=== PATIENT | female | born 1990 | race Caucasian/White ===

== ENCOUNTER 2018-06-02 02:20 | Emergency (ER) | payer OTHER ==
[~2018-06-02] VITALS: Ht 165.1 cm; Wt 95.3 kg
[~2018-06-02 02:20] MED LIST: AMOXICILLIN500 M2 PO; ANAPROX DS550 MG PO; CLINDAMYCIN HC300 MG PO; DEPO PROVER150 MG/M1 IM; FLEXERIL10 MG PO; HYDROCODONE BIT1 T11 PO; MACROBID100 M1 PO; MOTRIN800 MG PO; NAPROSYN500 MG PO; PHENERGAN25 M1 PO; ULTRAM50 MG PO; ZITHROMAX250 MG PO
== END 2018-06-02 03:39 | disposition home or self-care (01) ==
LOC: ED 02:20
DX: M79.672 Pain in left foot (principal); M79.89 Other specified soft tissue disorders; Z88.0 Allergy status to penicillin; X50.1XXA Overexertion from prolonged static or awkward postures, initial encounter; Y93.89 Activity, other specified; Y92.89 Other specified places as the place of occurrence of the external cause; Y99.8 Other external cause status

== ENCOUNTER → 2018-06-06 | Outpatient (CLI) | payer OTHER | END | disposition home or self-care (01) | LOC: MRI 11:00 | DX: M25.572 Pain in left ankle and joints of left foot (principal); M25.472 Effusion, left ankle ==

== ENCOUNTER 2018-08-31 18:46 | Emergency (ER) | payer OTHER ==
[~2018-08-31] VITALS: Ht 165.1 cm; Wt 99.8 kg
[2018-08-31 19:05] LABS: BASO % 0.4 % (0.0-1.0); EOS # 0.2 10*3/uL (0.0-0.4); EOS % 3.5 % (1.0-4.0); HEMATOCRIT 42.4 % (37.0-47.0); HEMOGLOBIN 14.4 g/dl (12.0-16.0); LYMPH % 36.5 % (27.0-41.0); MEAN CELL VOLUME 92.6 fl (81.0-99.0); MEAN CORPUSCULAR HGB 31.4 pg (27.0-31.0); MEAN PLATELET VOLUME 11.4 fl (9.6-12.3); MONO # 0.5 10*3/uL (0.1-1.0); MONO % 8.9 % (3.0-9.0); NEUT # 2.7 10*3/uL (2.3-7.9); NEUT % 50.5 % (47.0-73.0); PLATELET COUNT AUTOMATED 190 10*3/uL (130-400); RED BLOOD COUNT 4.58 10*6/uL (4.10-5.10); RED CELL DISTRI WIDTH 12.8 % (0-14.5); WHITE BLOOD COUNT 5.4 10*3/uL (4.8-10.8)
[2018-08-31 19:21] LABS: ALBUMIN 3.3 gm/dl (3.1-4.5); ALKALINE PHOSPHATASE 56 U/L (45-117); BUN 10 mg/dl (7-24); CHLORIDE 107 mmol/L (98-107); CREATININE 0.65 mg/dL (0.55-1.02); POTASSIUM 4.3 mmol/L (3.5-5.1); SGOT/AST 28 IU/L (3-35); SGPT/ALT 46 U/L (12-78); SODIUM 139 mmol/L (136-145); TOTAL PROTEIN 7.7 gm/dL (6.4-8.2)
[2018-08-31] MEDS ORDERED: AVPAK AZITHROM250 MG PO (19:34)
[2018-08-31] MEDS ORDERED: ROBITUSSIN DM 101 OZ PO (19:34)
== END 2018-08-31 20:36 | disposition home or self-care (01) ==
LOC: ED 18:46
PROVIDERS: Nurse Practitioner Family
DX: J03.90 Acute tonsillitis, unspecified (principal); J06.9 Acute upper respiratory infection, unspecified; R51 Headache; F17.200 Nicotine dependence, unspecified, uncomplicated; Z88.0 Allergy status to penicillin

== ENCOUNTER 2018-11-23 02:18 | Emergency (ER) | payer OTHER ==
[~2018-11-23] VITALS: Ht 165.1 cm; Wt 95.3 kg
[~2018-11-23 02:18] MED LIST changes: +AVPAK AZITHROM250 MG PO; +ROBITUSSIN DM 101 OZ PO
[2018-11-23] MEDS ORDERED: ULTRAM50 MG PO (04:49)
== END 2018-11-23 05:17 | disposition home or self-care (01) ==
LOC: ED 02:18
DX: S82.55XA Nondisplaced fracture of medial malleolus of left tibia, initial encounter for closed fracture (principal); Z79.899 Other long term (current) drug therapy; Z88.0 Allergy status to penicillin; W01.0XXA Fall on same level from slipping, tripping and stumbling without subsequent striking against object, initial encounter; Y93.41 Activity, dancing; Y92.252 Music hall as the place of occurrence of the external cause; Y99.9 Unspecified external cause status

== ENCOUNTER 2019-05-01 20:01 | Emergency (ER) | payer OTHER ==
[~2019-05-01] VITALS: Ht 165.1 cm; Wt 99.8 kg
== END 2019-05-01 22:05 | disposition home or self-care (01) ==
LOC: ED 20:01
DX: S93.402A Sprain of unspecified ligament of left ankle, initial encounter (principal); S90.122A Contusion of left lesser toe(s) without damage to nail, initial encounter; W17.2XXA Fall into hole, initial encounter; Y93.89 Activity, other specified; Y92.89 Other specified places as the place of occurrence of the external cause; Y99.8 Other external cause status; Z88.0 Allergy status to penicillin

== ENCOUNTER 2019-06-19 15:12 | Emergency (ER) | payer OTHER ==
[~2019-06-19] VITALS: Ht 165.1 cm; Wt 99.8 kg
[2019-06-19] MEDS ORDERED: ZITHROMAX250 MG PO (15:58)
== END 2019-06-19 16:11 | disposition home or self-care (01) ==
LOC: ED 15:12
DX: J02.9 Acute pharyngitis, unspecified (principal); H92.02 Otalgia, left ear; Z88.0 Allergy status to penicillin

== ENCOUNTER → 2020-06-27 | Outpatient (CLI) | payer OTHER | END | disposition home or self-care (01) | LOC: COVID19 15:46 | PROVIDERS: ATTEND Internal Medicine | DX: Z20.828 Contact with and (suspected) exposure to other viral communicable diseases (principal) ==

== ENCOUNTER → 2021-05-10 | Outpatient (CLI) | payer OTHER ==
[2021-05-10 15:02] LABS: BASO % 0.2 % (0.0-1.0); EOS # 0.3 10*3/uL (0.0-0.4); EOS % 3.5 % (1.0-4.0); HEMATOCRIT 38.6 % (37.0-47.0); LYMPH # 1.3 10*3/uL (1.3-4.4); LYMPH % 16.4 % (27.0-41.0); MEAN CELL VOLUME 91.3 fl (81.0-99.0); MEAN CORPUSCULAR HGB 29.8 pg (27.0-31.0); MEAN CORPUSCULAR HGB CONC 32.6 g/dl (33.0-37.0); MEAN PLATELET VOLUME 10.9 fl (9.6-12.3); MONO # 0.5 10*3/uL (0.1-1.0); MONO % 6.3 % (3.0-9.0); NEUT # 5.9 10*3/uL (2.3-7.9); NEUT % 73.4 % (47.0-73.0); PLATELET COUNT AUTOMATED 239 10*3/uL (130-400); RED BLOOD COUNT 4.23 10*6/uL (4.10-5.10); WHITE BLOOD COUNT 8.1 10*3/uL (4.8-10.8)
[2021-05-10 15:19] LABS: ALBUMIN 3.1 gm/dl (3.1-4.5); ALKALINE PHOSPHATASE 69 U/L (45-117); BUN 6 mg/dl (7-24); CHLORIDE 107 mmol/L (98-107); CHOLESTEROL 148 mg/dL (<200); CREATININE 0.63 mg/dL (0.55-1.02); POTASSIUM 4.2 mmol/L (3.5-5.1); SGOT/AST 19 IU/L (3-35); SGPT/ALT 28 U/L (12-78); SODIUM 139 mmol/L (136-145); TOTAL PROTEIN 7.2 gm/dL (6.4-8.2); TRIGLYCERIDES 67 mg/dl (<150)
[2021-05-10 15:20] LABS: FREE T4 0.98 ng/dl (0.76-1.46); LDL CHOLESTEROL 100 mg/dL (9-159)
[2021-05-10 15:28] LABS: BETA-HCG, QUANT < 1.0 mIU/mL (1-3)
[2021-05-10 17:06] LABS: VITAMIN D, 25-HYDROXY 26.2 ng/mL (30-100)
== END | disposition home or self-care (01) ==
LOC: LAB 14:25
PROVIDERS: ATTEND Internal Medicine
DX: Z00.00 Encounter for general adult medical examination without abnormal findings (principal); N91.2 Amenorrhea, unspecified; Z13.1 Encounter for screening for diabetes mellitus; Z13.21 Encounter for screening for nutritional disorder; Z13.220 Encounter for screening for lipoid disorders; E55.9 Vitamin D deficiency, unspecified

== ENCOUNTER → 2021-07-21 | Outpatient (CLI) | payer BC, OTHER | END | disposition home or self-care (01) | LOC: LAB 14:53 → US 15:00 | PROVIDERS: ATTEND Nurse Practitioner Women's Health | DX: N83.292 Other ovarian cyst, left side (principal); N91.1 Secondary amenorrhea ==

== ENCOUNTER → 2021-09-29 | Outpatient (CLI) | payer BC, OTHER | END | disposition home or self-care (01) | LOC: US 09-15 11:00 | PROVIDERS: ATTEND Nurse Practitioner Women's Health | DX: N85.4 Malposition of uterus (principal); N83.202 Unspecified ovarian cyst, left side ==

== ENCOUNTER 2022-04-27 16:12 | Emergency (ER) | payer OTHER ==
[~2022-04-27] VITALS: Ht 165.1 cm; Wt 117.9 kg
[2022-04-27 18:56] LABS: BILIRUBIN 3+ (Negative); BLOOD Negative (Negative); CLARITY Cloudy (Clear); COLOR Orange (Yellow); GLUCOSE Negative (Negative); KETONE Trace (Negative); LEUKO ESTERASE 2+ (Negative); NITRITE Positive (Negative); PH 5.5 (4.5-8.0); SPECIFIC GRAVITY >= 1.030 (1.001-1.030)
[2022-04-27 19:00] LABS: BASO % 0.1 % (0.0-1.0); EOS # 0.1 10*3/uL (0.0-0.4); HEMATOCRIT 40.9 % (37.0-47.0); LYMPH # 2.2 10*3/uL (1.3-4.4); MEAN CELL VOLUME 83.5 fl (81.0-99.0); MEAN CORPUSCULAR HGB 26.9 pg (27.0-31.0); MEAN CORPUSCULAR HGB CONC 32.3 g/dl (33.0-37.0); MEAN PLATELET VOLUME 10.6 fl (9.6-12.3); MONO # 0.4 10*3/uL (0.1-1.0); MONO % 5.5 % (3.0-9.0); NEUT # 4.2 10*3/uL (2.3-7.9); NEUT % 61.3 % (47.0-73.0); PLATELET COUNT AUTOMATED 308 10*3/uL (130-400); RED CELL DISTRI WIDTH 15.2 % (0-14.5); WHITE BLOOD COUNT 6.9 10*3/uL (4.8-10.8)
[2022-04-27 19:13] LABS: BACTERIA 4+; CALCIUM OXALATE CRYSTALS 2+; EPITHELIAL CELLS TNTC; MUCOUS 2+
[2022-04-27 19:19] LABS: ALKALINE PHOSPHATASE 216 U/L (45-117); BUN 8 mg/dl (7-24); CHLORIDE 108 mmol/L (98-107); CREATININE 0.72 mg/dL (0.55-1.02); LIPASE 86 U/L (73-393); POTASSIUM 4.3 mmol/L (3.5-5.1); SGOT/AST 761 IU/L (3-35); SODIUM 140 mmol/L (136-145); TOTAL PROTEIN 8.2 gm/dL (6.4-8.2)
[2022-04-27 19:22] LABS: B-hCG (QUALITATIVE) NEGATIVE (NEGATIVE)
[2022-04-27 19:29] LABS: SGPT/ALT 1084 U/L (12-78)
[2022-04-28] MEDS ORDERED: PANTOPRAZOLE SO40 MG PO (00:03)
[2022-04-28] MEDS ORDERED: DICYCLOMINE HCL10 MG PO (00:03)
[2022-04-28] MEDS ORDERED: FUROSEMIDE20 M1 PO (00:03)
[2022-04-28] MEDS ORDERED: MEDROXYPRO150 MG/1 M IM (00:03)
[2022-04-28] MEDS ORDERED: DOCUSATE SOD100 MG PO (00:04)
[2022-04-28] MEDS ORDERED: [UNRECOGNIZED DRUG - OTHER] (00:04)
== END 2022-04-28 13:05 | disposition short-term general hospital (02) ==
LOC: ED 16:12
PROVIDERS: Physician Assistant
DX: R74.01 Elevation of levels of liver transaminase levels (principal); Z90.49 Acquired absence of other specified parts of digestive tract; Z88.0 Allergy status to penicillin; Z79.899 Other long term (current) drug therapy

== ENCOUNTER 2022-08-01 22:29 | Emergency (ER) | payer OTHER ==
[~2022-08-01] VITALS: Ht 162.5 cm; Wt 81.6 kg
[~2022-08-01 22:29] MED LIST changes: +DICYCLOMINE HCL10 MG PO; +DOCUSATE SOD100 MG PO; +FUROSEMIDE20 M1 PO; +MEDROXYPRO150 MG/1 M IM; +PANTOPRAZOLE SO40 MG PO; +[UNRECOGNIZED DRUG - OTHER]
[2022-08-01 23:13] LABS: BASO % 0.2 % (0.0-1.0); HEMATOCRIT 30.7 % (37.0-47.0); LYMPH # 2.2 10*3/uL (1.3-4.4); LYMPH % 14.9 % (27.0-41.0); MEAN CORPUSCULAR HGB 28.9 pg (27.0-31.0); MEAN CORPUSCULAR HGB CONC 32.9 g/dl (33.0-37.0); MEAN PLATELET VOLUME 9.5 fl (9.6-12.3); MONO # 1.1 10*3/uL (0.1-1.0); MONO % 7.5 % (3.0-9.0); NEUT # 11.1 10*3/uL (2.3-7.9); NEUT % 77.1 % (47.0-73.0); PLATELET COUNT AUTOMATED 526 10*3/uL (130-400); RED BLOOD COUNT 3.49 10*6/uL (4.10-5.10); RED CELL DISTRI WIDTH 16.7 % (0-14.5); WHITE BLOOD COUNT 14.4 10*3/uL (4.8-10.8)
[2022-08-01 23:27] LABS: ALKALINE PHOSPHATASE 127 U/L (46-116); BUN 6 mg/dl (9-23); CHLORIDE 99 mmol/L (98-107); LIPASE 37 U/L (12-53); POTASSIUM 3.7 mmol/L (3.4-5.1); SGPT/ALT 14 U/L (10-49)
== END 2022-08-02 07:35 | disposition left against medical advice (07) ==
LOC: ED 22:29
PROVIDERS: Internal Medicine
DX: A41.9 Sepsis, unspecified organism (principal); L02.211 Cutaneous abscess of abdominal wall; E87.1 Hypo-osmolality and hyponatremia; D64.9 Anemia, unspecified; E44.0 Moderate protein-calorie malnutrition; Z88.0 Allergy status to penicillin; Z79.899 Other long term (current) drug therapy

== ENCOUNTER 2022-08-13 11:57 | Emergency (ER) | payer OTHER ==
[~2022-08-13] VITALS: Ht 165.1 cm; Wt 99.8 kg
[2022-08-13 14:31] LABS: BASO % 0.2 % (0.0-1.0); EOS % 0.1 % (1.0-4.0); HEMATOCRIT 31.4 % (37.0-47.0); LYMPH # 2.5 10*3/uL (1.3-4.4); MEAN CELL VOLUME 86.7 fl (81.0-99.0); MEAN CORPUSCULAR HGB 27.6 pg (27.0-31.0); MEAN CORPUSCULAR HGB CONC 31.8 g/dl (33.0-37.0); MEAN PLATELET VOLUME 9.3 fl (9.6-12.3); MONO # 0.6 10*3/uL (0.1-1.0); MONO % 6.3 % (3.0-9.0); NEUT # 5.8 10*3/uL (2.3-7.9); NEUT % 65.1 % (47.0-73.0); PLATELET COUNT AUTOMATED 569 10*3/uL (130-400); RED BLOOD COUNT 3.62 10*6/uL (4.10-5.10); RED CELL DISTRI WIDTH 15.6 % (0-14.5); WHITE BLOOD COUNT 8.9 10*3/uL (4.8-10.8)
[2022-08-13 15:09] LABS: ALKALINE PHOSPHATASE 101 U/L (46-116); BUN 7 mg/dl (9-23); CHLORIDE 99 mmol/L (98-107); POTASSIUM 3.8 mmol/L (3.4-5.1); SGPT/ALT 17 U/L (10-49); TOTAL PROTEIN 8.2 gm/dL (6.0-8.0)
[2022-08-13 15:25] LABS: BILIRUBIN Negative (Negative); BLOOD Negative (Negative); CLARITY Cloudy (Clear); COLOR Yellow (Yellow); GLUCOSE Negative (Negative); KETONE 2+ (Negative); LEUKO ESTERASE 1+ (Negative); NITRITE Negative (Negative); SPECIFIC GRAVITY 1.015 (1.001-1.030)
[2022-08-13 16:00] LABS: PH 8.5 (4.5-8.0)
[2022-08-13 16:08] LABS: BACTERIA 1+; RBC 0-2 rbc/hpf (0-2)
== END 2022-08-14 14:33 | disposition short-term general hospital (02) ==
LOC: ED 11:57
PROVIDERS: Nurse Practitioner Family
DX: L02.211 Cutaneous abscess of abdominal wall (principal); Z88.0 Allergy status to penicillin; F10.90 Alcohol use, unspecified, uncomplicated

== ENCOUNTER 2024-11-30 02:38 | Emergency (ER) | payer OTHER ==
[~2024-11-30] VITALS: Ht 165.1 cm; Wt 117.9 kg
[2024-11-30 03:14] LABS: BASO % 0.2 % (0.0-1.0); EOS # 0.1 10*3/uL (0.0-0.4); EOS % 0.5 % (1.0-4.0); HEMATOCRIT 39.2 % (37.0-47.0); MEAN CELL VOLUME 89.9 fl (81.0-99.0); MEAN CORPUSCULAR HGB 29.1 pg (27.0-31.0); MEAN CORPUSCULAR HGB CONC 32.4 g/dl (33.0-37.0); MEAN PLATELET VOLUME 10.4 fl (9.6-12.3); MONO # 0.8 10*3/uL (0.1-1.0); MONO % 4.9 % (3.0-9.0); NEUT # 13.9 10*3/uL (2.3-7.9); PLATELET COUNT AUTOMATED 254 10*3/uL (130-400); RED BLOOD COUNT 4.36 10*6/uL (4.10-5.10); WHITE BLOOD COUNT 16.3 10*3/uL (4.8-10.8)
[2024-11-30] MEDS ORDERED: BUMETANIDE1 MG PO (03:30)
[2024-11-30] MEDS ORDERED: ALDACTONE25 M1 PO (03:30)
[2024-11-30] MEDS ORDERED: ZOLOFT50 MG PO (03:30)
[2024-11-30] MEDS ORDERED: LIPITOR80 MG PO (03:31)
[2024-11-30] MEDS ORDERED: ZETIA10 MG PO (03:31)
[2024-11-30] MEDS ORDERED: PLAVIX75 M1 PO (03:31)
[2024-11-30] MEDS ORDERED: ELIQUIS5 M1 PO (03:31)
[2024-11-30 03:32] LABS: CHLORIDE 102 mmol/L (98-107); POTASSIUM 4.4 mmol/L (3.4-5.1)
[2024-11-30] MEDS ORDERED: TOPROL XL25 MG PO (03:32)
[2024-11-30] MEDS ORDERED: DIOVAN40 MG PO (03:32)
[2024-11-30] MEDS ORDERED: JARDIANCE10 MG PO (03:32)
[2024-11-30 03:33] LABS: BUN < 5 mg/dl (9-23)
[2024-11-30] MEDS ORDERED: CLINDAMYCIN HCL 300 MG CAPSULE PO ONE (04:35)
[2024-11-30] MEDS ORDERED: methylPREDNISolone sod succ 125 MG VIAL IM ONE (04:35)
[2024-11-30] MEDS ORDERED: CLINDAMYCIN HC300 MG PO (04:38)
== END 2024-11-30 04:48 | disposition home or self-care (01) ==
LOC: ED 02:38
PROVIDERS: Internal Medicine
DX: J02.0 Streptococcal pharyngitis (principal); A41.9 Sepsis, unspecified organism; D72.829 Elevated white blood cell count, unspecified; Z88.0 Allergy status to penicillin

== ENCOUNTER → 2024-12-26 | Outpatient (CLI) | payer OTHER ==
[~2024-12-26] MED LIST changes: +ALDACTONE25 M1 PO; +BUMETANIDE1 MG PO; +DIOVAN40 MG PO; +ELIQUIS5 M1 PO; +JARDIANCE10 MG PO; +LIPITOR80 MG PO; +PLAVIX75 M1 PO; +TOPROL XL25 MG PO; +ZETIA10 MG PO; +ZOLOFT50 MG PO
== END | disposition home or self-care (01) ==
LOC: LAB 09:15
PROVIDERS: ATTEND Nurse Practitioner Women's Health
DX: L68.0 Hirsutism (principal)